=== PATIENT | male | born 1965 ===

== ENCOUNTER 2023-11-27 08:02 | Outpatient (CLI) | payer BC, SELFPAY ==
--- NOTE | ~2023-11-27 | CT_ITS ---
EXAMINATION: CT wrist RT wo con DATE: 11/27/2023 08:33 INDICATION: Acute pain of right wrist. TECHNIQUE: Computed tomography (CT) of the right wrist was performed without intravenous contrast. Au tomated exposure control and iterative reconstruction technique were employed. The dose-length produc t was 491.35 mGy-cm. COMPARISON: None FINDINGS: There is a fracture of dorsal base of third metacarpal. The proximal fracture fragment demo nstrates less than 2 mm dorsal displacement. There is mild osteoarthritis of first carpometacarpal jalen int and radiolunate joint. There are loose bodies in second carpometacarpal joint.. IMPRESSION: 1. Fracture of dorsal base of third metacarpal. 2. Mild polyarticular osteoarthritis. 3. Loose bodies in second carpometacarpal joint. Reviewed, dictated and finalized at location A. NMAN
== END 2023-11-27 08:03 ==
DX: M19.031 Primary osteoarthritis, right wrist (principal); M24.031 Loose body in right wrist
CPT/HCPCS: 73200

== ENCOUNTER 2024-01-10 10:44 | Outpatient (CLI) | payer BC, SELFPAY ==
--- NOTE | ~2024-01-10 | MR_ITS ---
EXAMINATION: MR wrist RT wo/w con DATE: 01/10/2024 11:52 INDICATION: Displaced fracture of the lunate TECHNIQUE: Magnetic resonance imaging (MRI) of the right wrist was performed without intravenous cont rast. Sequences performed include axial PD-weighted FSE and PD-weighted FS FSE, coronal PD-weighted F S FSE and T1-weighted SE, and sagittal PD-weighted FS FSE and PD-weighted FSE. COMPARISON: CT dated 11/27/2023 FINDINGS: Intrinsic ligaments: There is thickening and increased signal of the dorsal and central membranous component of the scapho lunate ligament consistent with partial tears. This may be chronic as there is chronic appearing justine icated ossicle along the ulnar side of the ligament on the prior CT images. The lunotriquetral ligame nt is normal. Triangular fibrocartilage complex (TFCC): There is a partial tear of the central fibrocartilaginous disc of the triangular fibrocartilage compl ex which also involves the volar side of the radial attachment. The foveal and styloid attachments as well as the dorsal and volar radioulnar ligaments are normal. The ulnar collateral ligament, ulnotri quetral ligament and meniscal homologue are normal. The extensor carpi ulnaris tendon sheath is ellyn l. Extensor wrist: There are complete avulsions of the extensor carpi radialis longus and brevis tendons with the tear m argin is retracted approximately 3.5 cm proximally to level of the radial styloid process is mild ten dinopathy and fraying with longitudinal split tearing extending additional 4.5 cm proximally in the e xtensor carpi radialis brevis tendon. Unchanged 2 mm proximal distraction of a fracture fragment invo lving the dorsal aspect of the proximal articular surface of the third metacarpal. Present additional defect at the dorsal base of the second metacarpal consistent with additional avulsion fracture coup le tiny flake-like avulsion fracture fragments better appreciated on the prior CT with are positioned near the site of the avulsion fracture and the second likely distracted along with the retracted tea r margin which was positioned dorsal to the proximal pole of the scaphoid on the prior CT. Neither of these fragments are able to be identified on the current MRI images likely due to either their small size or interval resorption. The remaining extensor tendons of the wrist are normal. No tenosynoviti s. Flexor wrist: The flexor tendons of the wrist are normal. No abnormality in the carpal tunnel with normal median n erve. Guyon's canal: Guyon's canal including the ulnar nerve and artery are normal. Bones/other: There is persistent mild marrow edema associated with the previously noted now subacute avulsion frac tures at the base of the second and third metacarpals. There is mild marrow edema at the juxtaposed d istal articular surface of the capitate. Mild subarticular cystic changes at the volar/ulnar margin o f the distal radius likely associated with the tear of the triangular fibrocartilage at this location . Additional mild particular cystlike change and overlying chondromalacia at the ulnar side of the pr oximal lunate and at the juxtaposed distal articular surface of the ulna which along with the interve libertad per the angle fibrocartilage could be related to ulnocarpal impaction. Minimal subarticular bowen a-like signal change along the midcarpal joint involving a small portion of the proximal hamate and c apitate and distal articular surface of the lunate. IMPRESSION: 1. Full-thickness tears and proximal retraction of the distal right extensor carpi radialis longus an d brevis tendons with associated avulsion fractures at the insertions at the dorsal base of the secon d and third metacarpals. 2. Likely chronic partial tear of the dorsal and central membranous components of the scapholunate li gament. 3. Tear of the central fibrocartilaginous disc of the triangular fiber cartilage complex with mild
== END 2024-01-10 10:45 ==
DX: S62.121D Displaced fracture of lunate [semilunar], right wrist, subsequent encounter for fracture with routine healing (principal); S62.312D Displaced fracture of base of third metacarpal bone, right hand, subsequent encounter for fracture with routine healing; X58.XXXD Exposure to other specified factors, subsequent encounter
CPT/HCPCS: 73223; A9577